=== PATIENT | female | born 2000 | race Caucasian/White ===

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

== ENCOUNTER 2019-08-24 17:10 | Outpatient (CLI) | payer BC | END 2019-08-24 17:11 | disposition home or self-care (01) | LOC: COV 17:10 | PROVIDERS: ATTEND Family Medicine | DX: R05 Cough (principal) ==

== ENCOUNTER 2019-08-30 10:16 | Outpatient (CLI) | payer BC ==
--- NOTE | 2019-08-30 10:49 | XRAY Report ---
Reason: URI Procedure Date: 08/30/2019 Accession Number: [id number] / [id number] Procedure: WCP - Chest 2 View X-Ray CPT Code: 05220 Final Report FULL RESULT: EXAM: CHEST RADIOGRAPHY EXAM DATE: 08/30/2019 10:16 AM. CLINICAL HISTORY: URI. COMPARISON: CHEST 2 VIEW PA/LAT 08/11/2017 3:24 PM. TECHNIQUE: 2 views. FINDINGS: Lungs/Pleura: Bilateral central bronchial wall thickening noted. No superimposed focal airspace consolidation. No pleural effusion or pneumothorax. Mediastinum: Heart and mediastinal contours are unremarkable. Other: None. IMPRESSION: 1. Bilateral central bronchial wall thickening could reflect underlying reactive airways of bronchitis. No evidence for superimposed pneumonia. [facility]
== END 2019-08-30 23:59 | disposition home or self-care (01) ==
LOC: DI.WCP 10:16
PROVIDERS: ATTEND Physician Assistant Medical
DX: J06.9 Acute upper respiratory infection, unspecified (principal)
CPT/HCPCS: 71046

== ENCOUNTER 2019-09-26 17:00 | Outpatient (CLI) | payer BC | END 2019-09-26 23:59 | disposition home or self-care (01) | LOC: LAB.R 17:00 | PROVIDERS: ATTEND Family Medicine | DX: L73.9 Follicular disorder, unspecified (principal) | CPT/HCPCS: 81599; 87255 ==

== ENCOUNTER 2020-04-03 08:00 | Outpatient (CLI) | payer BC | END 2020-04-03 23:59 | disposition home or self-care (01) | LOC: LAB.R 08:00 | PROVIDERS: ATTEND Obstetrics & Gynecology | DX: Z11.3 Encounter for screening for infections with a predominantly sexual mode of transmission (principal) | CPT/HCPCS: 81599; 87491; 87591; 87661 ==